=== PATIENT | male | born 1980 | race Two or more races ===

== ENCOUNTER 2024-11-07 15:38 | Emergency (ER) | payer SELFPAY ==
[~2024-11-07] VITALS: Ht 175.3 cm; Wt 102.0 kg
[2024-11-07 15:49] VITALS: BP 117/76; RESP 16; TEMP 98; O2SAT 97
--- NOTE | 2024-11-07 16:04 | ED.PDOC ---
History of Present Illness HPI Comments A 44 year-old male, with a PMHX of DM and HTN, presents to the ED with a chief complaint of general weakness with associated fatigue and dizziness as of hours ago. Patient states "everything going black" while driving around 1000 this morning. Patient reports stopping at [employer] and drinking a lemonade, with alleviating symptoms noted. Patient suspects low blood sugar as the cause of symptoms. Patient has no further symptoms at this time and otherwise denies further associated symptoms of N/V, LOC, fever, chills, chest pain, or headache. Chief Complaint: General Weakness Time Seen by MD: 16:10 Reviewed Notes: Nurses Notes, Medications, Allergies Allergies: Coded Allergies: NO KNOWN ALLERGIES (Unverified , 11/07/24) Information Source: Patient Mode of Arrival: Ambulatory Severity: Moderate Timing: Hours Duration: Since onset Associated signs and symptoms Fatigue and Dizziness Past Medical History PAST MEDICAL HISTORY: DM, HTN Surgical History: Denies all surgeries Family History Family History: Reviewed,noncontributory to illness, No family hx of Cancer, No family hx of Heart marlen, No family hx of HTN, No family hx ofKidney marlen, No family hx of Liver marlen, No family hx of Lung marlen, No family hx of Stroke, Family hx of DM Social History Smoker: Non-Smoker Alcohol: Occasionally Drugs: Denies Drug Use Lives In: Home Constitutional: reports: fatigue; denies: chills, diaphoresis, fever, malaise, sweats, weakness, others EENTM: denies: blurred vision, double vision, ear bleeding, ear discharge, ear drainage, ear pain, ear ringing, eye pain, eye redness, hearing loss, mouth pain, mouth swelling, nasal discharge, nose bleeding, nose congestion, nose pain, photophobia, tearing, throat pain, throat swelling, voice changes, others Respiratory: denies: cough, hemoptysis, orthopnea, SOB at rest, shortness of breath, SOB with excertion, stridor, wheezing, others Cardiovascular: denies: chest pain, dizzy spells, diaphoresis, Dyspnea on exe rtion, edema, irregular heart beat, left arm pain, lightheadedness, palpitations, PND, syncope, others Gastrointestinal: denies: abdomen distended, abdominal pain, blood streaked bowels, constipated, diarrhea, dysphagia, difficulty swallowing, hematemesis, melena, nausea, poor appetite, poor fluid intake, rectal bleeding, rectal pain, vomiting, others Genitourinary: denies: burning, dysuria, flank pain, frequency, hematuria, incontinence, penile discharge, penile sore, pain, testicle pain, testicle swelling, urgency, others Neurological: reports: dizziness, weakness; denies: fainting, headache, left sided numbness, left sided weakness, numbness, paresthesia, pre-existing deficit, right sided numbness, right sided weakness, seizure, speech problems, tingling, tremors, others Musculoskeletal: denies: back pain, gout, joint pain, joint swelling, muscle pain, muscle stiffness, neck pain, others Integumetry: denies: bruises, change in color, change in hair/nails, dryness, laceration, lesions, lumps, rash, wounds, others Allergic/Immunocompromised: denies: Difficulty Healing, Frequent Infections, Hives, Itching, others Hematologic/Lymphatic: denies: anemia, blood clots, easy bleeding, easy bruising, swollen glands, others Endocrine: denies: excessive hunger, excessive sweating, excessive thirst, excessive urination, flushing, intolerance to cold, intolerance to heat, unexplained weight gain, unexplained weight loss, others Psychiatric: denies: anxiety, bipolar disorder, depression, hopeless, panic disorder, schizophrenia, sleepless, suicidal, others All Other Systems: Reviewed and Negative Physical Exam General Appearance: Mild Distress HEENT: Normal ENT Inspection, Pharynx Normal, TMs Normal Neck: Full Range of Motion, Non-Tender, Normal, Normal Inspection Respiratory: Chest Non-Tender, Lungs Clear, No Accessory Muscle Use, No Respiratory Distress, Normal Breath Sounds Cardiovascular: No Edema, No JVD, No Murmur, No Gallop, Normal Peripheral Pulses, Regular Rate/Rhythm Breast Exam: Deferred Gastrointestinal: No Organomegaly, Non Tender, No Pulsatile Mass, Normal Bowel Sounds, Soft Genitalia: Deferred Pelvic: Deferred Rectal: Deferred Extremities: No calf tenderness, Normal capillary refill, Normal inspection, Normal range of motion, Non-tender, No pedal edema Musculoskeletal : Apperance: Normal Neurologic: Alert, 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 Was a procedure done?: No EKG EKG : Pulse Rate (adult): 95 Farson: RAD Cardiac Rhythm: NSR ST: Nonsp Differential Dx Considerations may include: Low Blood Sugar, HTN Essential, HTN Accelerated, DM X-Ray, Labs, Meds, VS Vital Signs Date Time Temp Pulse Resp B/P (MAP) Pulse Ox O2 Delivery O2 Flow Rate FiO2 11/07/24 16:48 95 11/07/24 16:29 95 11/07/24 15:49 98.0 98 16 117/76 97 98.0 Lab Test 11/07/24 16:25 11/07/24 15:54 Range/Units White Blood Count 7.5 4.4-10.8 10^3/uL Red Blood Count 5.32 4.5-5.90 10^6/uL Hemoglobin 14.9 13.5-17.5 g/dL Hematocrit 43.3 41.0-53.0 % Mean Corpuscular Volume 81.5 80.0-100.0 fL Mean Corpuscular Hemoglobin 28.1 28.0-32.0 pg Mean Corpuscular Hemoglobin Concent 34.5 32.0-36.0 g/dL Red Cell Distribution Width 14.1 11.8-14.3 % Platelet Count 233 140-450 10^3/uL Mean Platelet Volume 7.5 6.9-10.8 fL Neutrophils (%) (Auto) 56.6 37.0-80.0 % Lymphocytes (%) (Auto) 28.0 10.0-50.0 % Monocytes (%) (Auto) 11.2 0.0-12.0 % Eosinophils (%) (Auto) 3.7 0.0-7.0 % Basophils (%) (Auto) 0.5 0.0-2.0 % Neutrophils # (Auto) 4.2 1.6-8.6 10 ^3/uL Lymphocytes # (Auto) 2.1 0.4-5.4 10 ^3/uL Monocytes # (Auto) 0.8 0-1.3 10 ^3/uL Eosinophils # (Auto) 0.3 0-0.8 10 ^3/uL Basophils # (Auto) 0 0-0.2 10 ^3/uL Nucleated Red Blood Cells 0.1 % Sodium Level 137 136-145 mmol/L Potassium Level 3.7 3.5-5.1 mmol/L Chloride Level 102 98-107 mmol/L Carbon Dioxide Level 27 20-31 mmol/L Anion Gap 8 5-15 Blood Urea Nitrogen 13 9-23 mg/dL Creatinine 0.99 0.700-1.30 mg/dL Glomerular Filtration Rate Calc 95 >90 mL/min BUN/Creatinine Ratio 13.1 10.0-20.0 Serum Glucose 260 H 74-106 mg/dL Calcium Level 9.2 8.7-10.4 mg/dL POC Glucose 288 H 70-106 mg/dl HEAD CT IMPRESSION: No acute intracranial abnormality. The patient's CBC is within normal limits The chemistry panel shows hyperglycemia at 260 The patient is being discharged and will follow up with the primary care doctor The patient will return to the emergency department's condition worsens The patient understands and agrees with the management. The patient is feeling better and would like to go home Images Reviewed?: Images reviewed and evaluated by me Time of 1ST Reevaluation: 16:34 Reevaluation 1ST: Unchanged Patient Education/Counseling: Diagnosis, Treatment, Prognosis, Need For Follow Up Family Education/Counseling: No Family Present SEPSIS Sepsis Screen Date sepsis recognized/suspect: Nov 07, 2024 Time Sepsis recognized/suspect: 9 Recent Procedure: No On Antibiotic Therapy: No Respiratory Rate >20: No Heart Rate >90: No Temp<36 C (96.8 F) or >38.3 C: No SBP <90 or MAP <65 mmHG: No New Acute Mental Status Change: No Is the patient on CPAP, BIPAP,: No Physician Orders Urinalysis (11/07/24 16:17) Head Without Contrast (11/07/24 16:17) Vital Signs Date Time Temp Pulse Resp B/P (MAP) Pulse Ox O2 Delivery O2 Flow Rate FiO2 11/07/24 16:48 95 11/07/24 16:29 95 11/07/24 15:49 98.0 98 16 117/76 97 98.0 Laboratory Tests Test 11/07/24 16:25 White Blood Count 7.5 10^3/uL (4.4-10.8) Departure 1 Departure Time of Disposition: 18:09 Impression: Primary Impression: Generalized weakness Additional Impression: Hypoglycemia Disposition: HOME / SELF CARE / HOMELESS Condition: Fair Discharged With: Self Critical Care Note Critical Care Time?: No Stability Stability form required: No Heart Score Heart Score: Heart Score Response (Comments) Value History N/A 0 EKG N/A 0 Age N/A 0 Risk Factors N/A 0 Troponin N/A 0 Total 0 I personally scribed for SHRAVAN IRVING MD ([email or web address]) on 11/07/24 at 16:04. Electronically submitted by Sneha Guerra ([email or web address]). I personally scribed for SHRAVAN IRVING MD ([email or web address]) on 11/07/24 at 16:21. Electronically submitted by Sneha Guerra ([email or web address]). I personally scribed for SHRAVAN IRVING MD ([email or web address]) on 11/07/24 at 17:36. Electronically submitted by Sneha Guerra ([email or web address]). SHRAVAN IRVING MD Nov 07, 2024 16:04
--- NOTE | 2024-11-07 16:30 | ECG ---
[facility] Test Date: 2024-11-07 Test Time: 16:29:12 Pat Name: NAM MCCALLUM Department: [facility] ED Patient ID: [facility]-[id number] Room: Gender: Osteopathy Doctor: KENNY : 1980 Requested By: SHRAVAN IRVING Order Number: [id number] Reading MD: Jourdan Jones Measurements Intervals [place] Rate: 95 P: 56 VT: 193 QRS: 122 QRSD: 96 T: 20 QT: 370 QTc: 465 Interpretive Statements Sinus rhythm Right axis deviation Baseline wander in lead(s) V4 Electronically Signed On 11-08-2024 17:53:45 PDT by Jourdan Jones Please click the below link to view image of tracing.
[2024-11-07 16:39] LABS: Hematocrit 43.3 % (41.0-53.0); Hemoglobin 14.9 g/dL (13.5-17.5); Mean Corpuscular Hemoglobin 28.1 pg (28.0-32.0); Mean Corpuscular Volume 81.5 fL (80.0-100.0); Nucleated Red Blood Cells % 0.1 %
[2024-11-07 16:48] VITALS: PULSE 95
[2024-11-07 16:48] LABS: Chloride 102 mmol/L (98-107); Potassium 3.7 mmol/L (3.5-5.1); Sodium 137 mmol/L (136-145)
[2024-11-07 16:49] LABS: Anion Gap 8 (5-15); Calcium 9.2 mg/dL (8.7-10.4); Carbon Dioxide 27 mmol/L (20-31)
[2024-11-07 16:54] LABS: BUN/Creatinine Ratio 13.1 (10.0-20.0); Blood Urea Nitrogen 13 mg/dL (9-23)
[2024-11-07 17:00] LABS: Glucose 260 mg/dL (74-106)
--- NOTE | 2024-11-07 17:34 | DVH ---
CLINICAL HISTORY: dizziness TECHNIQUE: Helical imaging carried out from skull base to vertex without intravenous contrast. This e xam was performed according to our departmental dose optimization program. Up-to-date CT equipment an d radiation dose reduction techniques are utilized as appropriate. CTDIVol: 67.99 mGy DLP: 1203.15 mGy-cm WID: COMPARISON: None FINDINGS: The ventricles and subarachnoid spaces are normal in size and configuration. There is no midline ezekiel ft or mass effect. The cagle white matter interfaces are maintained. The basal cisterns are patent. Th ere is no evidence of acute intracranial hemorrhage or extra-axial fluid collection. The mastoid air cells and visualized paranasal sinuses are well-aerated. IMPRESSION: No acute intracranial abnormality.
[2024-11-07 20:43] LABS: Urine Protein, UAD 3+ (Negative)
== END 2024-11-07 17:52 | disposition home or self-care (01) ==
LOC: ER 15:38
DX: R53.1 Weakness (principal); E11.649 Type 2 diabetes mellitus with hypoglycemia without coma; E11.65 Type 2 diabetes mellitus with hyperglycemia; I10 Essential (primary) hypertension
CPT/HCPCS: 36415; 70450; 80048; 81001; 82947; 82962; 85025; 93005